=== PATIENT | male | born 1955 | race Caucasian/White ===

== ENCOUNTER 2024-11-27 20:58 | Outpatient (REF) | payer MEDICARE, SELFPAY ==
[2024-11-27 21:46] LABS: Anion Gap 6.6 mmol/L (3-11); BUN 25 mg/dL (7-18); CO2 29.4 mmol/L (21.0-32.0); CREATININE 1.3 mg/dL (0.70-1.30); Calcium 9.8 mg/dL (8.5-10.1); Chloride 106 mmol/L (98-107); Estimated GFR 59.84 (mL/min/1.73m2); Glucose 142 mg/dL (74-106); Potassium 4.2 mmol/L (3.5-5.1); Sodium 142 mmol/L (136-145)
[2024-11-27 22:09] LABS: Bacteria Rare HPF (Negative); C & S Indicated? C&S Done As Ordered; Casts Negative LPF (Negative); Crystals Negative HPF (Negative); Epithelial Cells Rare HPF (Negative); Mucus Negative (Negative); RBC 0-2 HPF (0-2); WBC 0-2 HPF (0-5)
== END 2024-11-27 20:59 | disposition home or self-care (01) ==
LOC: LBN 20:58
PROVIDERS: PCP Physician Assistant; Visit Provider Physician Assistant Medical
DX: N40.1 Benign prostatic hyperplasia with lower urinary tract symptoms (principal)
CPT/HCPCS: 80048; 81015; 87086

== ENCOUNTER 2024-12-09 14:22 | Emergency (ER) | payer MEDICARE, SELFPAY ==
[2024-12-09 14:58] VITALS: BP 176/117; PULSE 94; RESP 16; TEMP 36.9; O2SAT 98
[2024-12-09 15:04] LABS: Bilirubin Negative (Negative); Blood Negative (Negative); Clarity Clear (Clear); Glucose Negative (Negative); Ketones Negative (Negative); Leukocyte Esterase Small (Negative); Nitrite Negative (Negative); Specific Gravity 1.015 (1.005-1.025); Urobilinogen 0.2 mg/dL (Up to 0.2)
[2024-12-09 15:24] LABS: Bacteria Rare HPF (Negative); C & S Indicated? No; Casts Negative LPF (Negative); Crystals Negative HPF (Negative); Epithelial Cells Rare HPF (Negative); Mucus Negative (Negative); RBC 0-2 HPF (0-2)
--- NOTE | 2024-12-09 16:35 | ED.GENADUL_ITS ---
Discharge Plan Disposition Patient Disposition: Home Condition: Stable Discharge Details Clinical Impression: Renal colic Primary Care Provider: [place],Local ED Provider: Wayne Christopher Home Meds and New Rx's Prescriptions: New tamsulosin 0.4 mg capsule 0.4 mg PO DAILY 30 Days Qty: 30 0RF ketorolac 10 mg tablet 10 mg PO QID PRNQty: 19 0RF Rx Instructions: maximum total duration of 5 days from all oral, intranasal, or parenteral formulations Discharge Instructions Instructions: Kidney stones in adults, Ketorolac (Systemic), Tamsulosin Additional Instructions: You were seen in the emergency department for your likely right-sided renal colic, you have had increasing urinary frequency and dysuria and likely have passed a right kidney stone down to the bladder, your right genitourinary tract is dilated indicating recent passage of stone, you will likely pass the stone out of the urethra. I have sent your prescription for Flomax or tamsulosin to take once per day, as well as an prescription strength NSAID called ketorolac that you will use for the first 5 days and then transition to ibuprofen in its place. Take 1000 mg of Tylenol every 6 hours, once you run out of ketorolac use 400 mg of ibuprofen senior living between Tylenol dosings also 4 times per day. Please stay well-hydrated, drink 1/2 to 1 gallon of water per day, use other diuretics like coffee and cranberry juice. Use [id number] AZO for symptomatic relief of urethral discomfort. I have sent a referral to our care management team and attached their number below, they will set you up with primary care in hopes to gaining access to urology at some point in the near future. Referrals: Care Management [Provider Group] [facility] [Provider Group] [facility] [Provider Group] [facility] [Provider Group] [facility] [Provider Group] Discharge Data Discharge Date/Time-TO BE ENTERED AT DEPARTURE: 12/09/24 19:23 HPI General Date/Time Provider Initiated Documentation: 12/09/24 14:47 . HPI Narrative: 69 year-old male presents to ED today by POV/ambulating with a chief complaint of increasing urinary frequency, known BPH, dysuria with onset over the past several months. Quality described as weak stream, dysuria, urinary frequency, history of renal stones, no radiation to fever, nausea, vomiting, lack of urine output, severe abdominal pain, flank pain, cough, chest pain, shortness of breath. Severity is described as severe. Palliating factors include nothing specific attempted. Provoking factors include nothing specific. Events leading up to the incident/Associated Symptoms: Patient is staying with a friend in [place]- does not have PCP here. Patient not anticoagulated. Related Data Home Medications ?Medication ?Instructions ?Recorded ?Confirmed ketorolac 10 mg tablet 10 mg PO QID PRN #19 tabs 12/09/24 tamsulosin 0.4 mg capsule 0.4 mg PO DAILY 30 days #30 caps 12/09/24 Previous Rx's ?Medication ?Instructions ?Recorded ketorolac 10 mg tablet 10 mg PO QID PRN #19 tabs 12/09/24 tamsulosin 0.4 mg capsule 0.4 mg PO DAILY 30 days #30 caps 12/09/24 Allergies Allergy/AdvReac Type Severity Reaction Status Date / Time No Known Allergies Allergy Verified 12/09/24 15:06 General Stated Complaint: FlankPain CARMELO: 3 Review of Systems All systems reviewed & are unremarkable except as noted in HPI and below Exam Narrative Exam Narrative: GENERAL APPEARANCE: Well-nourished, non-toxic, awake and alert, atraumatic, no acute distress. SKIN: Warm, pink, dry, intact, without rashes/lesions/ulcerations. HEAD: Normocephalic, atraumatic, normal hair distribution for gender/age. EYES: Normal conjunctiva, no exudates on lids/lashes. ENT: Nares patent, no circumoral cyanosis, no facial swelling NECK: Supple, trachea midline, painless cervical ROM. LUNGS/CHEST: Non-labored respirations, normal A/P diameter, symmetrical expansion, no chest wall deformity HEART (CV/PV): No peripheral edema, no JVD. ABDOMEN: Soft, non-distended, no guarding, LLQ tenderness without rebound tenderness, no CVA tenderness to percussion bilaterally. MSK: Normal ROM, no swelling/deformity to bilateral UEs or LEs, moving all extremities without weakness, no cyanosis, spine midline without tenderness, normal curvature. NEURO: Mental Status AAOx4 - alert to person, place, time, events No facial droop, no forehead involvement. Motor: No focal weakness - strength 5/5 in bilateral UEs and LEs, proximal and distal, symmetric. Sensory: sensation intact to light touch globally. Gait normal: patient ambulated without ataxia into ED room. PSYCH: euthymic, cooperative, pleasant, appropriate speech Course Vital Signs Vital signs: Vital Signs Temperature 36.9 C 12/09/24 14:58 Pulse 94 H 12/09/24 14:58 Respiratory Rate 16 12/09/24 14:58 Blood Pressure 176/117 H 12/09/24 14:58 Pulse Oximetry 98 12/09/24 14:58 Temperature 36.9 C 12/09/24 14:58 Temperature Source Oral 12/09/24 14:58 Pulse 94 H 12/09/24 14:58 Respiratory Rate 16 12/09/24 14:58 Blood Pressure 176/117 H 12/09/24 14:58 Blood Pressure Position Sitting 12/09/24 14:58 Pulse Oximetry 98 12/09/24 14:58 Oxygen Delivery Method Room Air 12/09/24 14:58 Oxygen Flow Rate 0 12/09/24 14:58 Pain Level 7 12/09/24 14:58 Lab/Test Results Lab/Test Results: Laboratory Tests Range/Units 12/09/24 14:58 Urine Color (Yellow) Yellow Urine Clarity (Clear) Clear Urine pH (5-8) 7.0 Ur Specific [place] (1.005-1.025) 1.015 Urine Protein (Neg-Trace) mg/dL Negative Urine Ketones (Negative) mg/dL Negative Urine Blood (Negative) Negative Urine Nitrite (Negative) Negative Urine Bilirubin (Negative) Negative Urine Urobilinogen (Up to 0.2) mg/dL 0.2 Ur Leukocyte Esterase (Negative) Small H Urine RBC (0-2) HPF 0-2 Urine WBC (0-5) HPF 5-10 Ur Epithelial Cells (Negative) HPF Rare Urine Crystals (Negative) HPF Negative Urine Bacteria (Negative) HPF Rare Urine Casts (Negative) LPF Negative Urine Mucus (Negative) Negative Ur Culture Indicated? No Urine Glucose (Negative) mg/dL Negative Medical Decision Making This dictation utilizes [id number] dictation software and may contain unedited grammatical errors. 69 year-old male presents to ED today by POV/ambulating with a chief complaint of increasing urinary frequency, known BPH, dysuria with onset over the past several months-worse over the last 10 days with nocturia. Quality described as weak stream, dysuria, urinary frequency, history of renal stones, no radiation to fever, nausea, vomiting, lack of urine output, severe abdominal pain, flank pain, cough, chest pain, shortness of breath. Severity is described as severe. Palliating factors include nothing specific attempted. Provoking factors include nothing specific. Events leading up to the incident/Associated Symptoms: Patient is staying with a friend in [place]- does not have PCP here. Patients' medical history: Kidney stones, BPH. Family and social history: Noncontributory. Pertinent exam findings / vital signs include mild left lower quadrant tenderness, no CVA tenderness to percussion bilaterally, nontoxic vitals. Differential / pathologies of concern include renal colic, BPH with outflow obstruction, pyelonephritis, less likely bowel pathology, prostatitis. Diagnostic studies of: -CBC, CMP, UA, CT renal colic study. -CBC shows no leukocytosis -CMP without actionable abnormality -UA shows small leukoesterase with 5-10 WBCs, reflex to culture -CT renal colic study shows a 5 mm bladder stone on the right side with mild dilatation of the right renal collecting system likely recently passed stone through the ureter which correlates with the patient's onset over the past few days Interventions of: -Tamsulosin, ketorolac, Tylenol. ED Course/Assessment/Plan: 69-year-old male is visiting the area and does not have a PCP presents with dysuria and weak stream over months with known BPH, has a history of renal stones and notes worse dysuria nocturia and frequency over the last [address] shows a 5 mm bladder stone and dilated right renal collecting system likely passed 5 mm stone recently, I counseled him on Flomax and ketorolac which were provided by prescription and referred him to PCP to establish care so he could see a urologist. Findings not consistent with overt UTI, infected renal stone, obstructive uropathy. Disposition of renal colic. Patient verbalized understanding of the plan and return to ED criteria and engaged in shared decision making. Medical Records Medical records reviewed: Yes I reviewed the patient's medical records. Imaging Data Radiologic Study: Attestation: I personally reviewed and interpreted this imaging study as follows: Imaging: CT Scan Radiologist's impression: EXAM: CT RENAL COLIC WO CLINICAL HISTORY: hx stones, dysuria, frequency. TECHNIQUE: Imaging Protocol: Axial computed tomography images with coronal and sagittal reformatted images were created and reviewed. COMPARISON: No exams were available for comparison FINDINGS: ABDOMEN: Lung Bases: There is a calcified granuloma in the right lower lobe. Coronary artery calcifications are present. Liver: Normal density. No measurable mass. Gallbladder and biliary tract: No radiodense calculus or biliary ductal dilation. Pancreas: Normal density, no abnormal calcifications or inflammatory process. Spleen: Normal. Kidneys: Normal size, contour and axis.There is a 5 mm stone in the right aspect of the urinary bladder. There is very mild dilatation of the right ureter particularly distally. This may represent a recently passed stone. No masses seen. Adrenal glands: No mass is seen. Lymph nodes: Within normal limits. Abdominal Aorta: Abdominal portion non-dilated. Atherosclerotic calcification is present. PELVIS: Bladder:There is a 5 mm bladder stone present. The urinary bladder is distended. Bowel: No obstruction or bowel wall thickening. The stomach is incompletely distended limiting evaluation. There is no evidence of appendicitis. Peritoneal cavity: No ascites, collection or mesenteric inflammatory response. No free air. Reproductive organs: The prostate gland is markedly enlarged and impinges upon the base of the urinary bladder. Bones: Within normal limits. There is L5 spondylolysis and grade 1 spondylolisthesis of L5 on S1. Soft Tissues: Within normal limits. IMPRESSION: 1. 5 mm bladder stone on the right side. There is mild dilatation of the right renal collecting system. This may represent a recently passed stone. 2. Marked prostatomegaly. 3. No nephrolithiasis. Lab Data Lab results reviewed: Yes I reviewed the patient's lab results. Labs: 12/09/24 17:03 Urine - Clean Catch Urine Culture - Pending Laboratory Tests Range/Units 12/09/24 12/09/24 14:58 17:24 WBC (4.4-10.8) 10^3/uL 7.30 RBC (4.36-5.78) 10^6/uL 4.74 Hgb (13.5-17.5) g/dL 14.6 Hct (40.0-50.0) % 44.8 MCV (80-95) fL 95 MCH (27.0-33.0) pg 30.8 MCHC (32.0-36.0) % 32.6 RDW (11.8-14.1) % 13.7 Plt Count (130-400) 10^3/uL 253 MPV (8.0-11.0) fL 9.6 Immature Gran % % 0.1 Neutrophils % % 57.2 Lymphocytes % % 29.9 Monocytes % % 10.3 Eosinophils % % 1.8 Basophils % % 0.7 Nucleated RBC % (0.0-0.3) % 0.0 Absolute Neutrophils (1.2-6.7) 10^3/uL 4.18 Absolute Lymphocytes (1.2-3.4) 10^3/uL 2.18 Absolute Monocytes (0.1-0.8) 10^3/uL 0.75 Absolute Eosinophils (0.0-0.7) 10^3/uL 0.13 Absolute Basophils (0.0-0.2) 10^3/uL 0.05 Sodium (136-145) mmol/L 143 Potassium (3.5-5.1) mmol/L 4.7 Chloride (98-107) mmol/L 105 Carbon Dioxide (21.0-32.0) mmol/L 28.4 Anion Gap (3-11) mmol/L 9.6 BUN (7-18) mg/dL 18 Creatinine (0.70-1.30) mg/dL 1.2 Est GFR (CKD-EPI 2020) (mL/min/1.73m2) 65.87 Glucose (74-106) mg/dL 105 Calcium (8.5-10.1) mg/dL 9.7 Total Bilirubin (0.2-1.0) mg/dL 0.52 AST (15-37) U/L 26 ALT (16-63) U/L 36 Alkaline Phosphatase (46-116) U/L 98 Total Protein (6.4-8.2) g/dL 8.0 Albumin (3.4-5.0) g/dL 4.2 Urine Color (Yellow) Yellow Urine Clarity (Clear) Clear Urine pH (5-8) 7.0 Ur Specific [place] (1.005-1.025) 1.015 Urine Protein (Neg-Trace) mg/dL Negative Urine Ketones (Negative) mg/dL Negative Urine Blood (Negative) Negative Urine Nitrite (Negative) Negative Urine Bilirubin (Negative) Negative Urine Urobilinogen (Up to 0.2) mg/dL 0.2 Ur Leukocyte Esterase (Negative) Small H Urine RBC (0-2) HPF 0-2 Urine WBC (0-5) HPF 5-10 Ur Epithelial Cells (Negative) HPF Rare Urine Crystals (Negative) HPF Negative Urine Bacteria (Negative) HPF Rare Urine Casts (Negative) LPF Negative Urine Mucus (Negative) Negative Ur Culture Indicated? No Urine Glucose (Negative) mg/dL Negative Quality:SDOH Health Related Social Needs: No Data to Display PFSH All Active Problems (Updated 12/09/24 @ 19:06 by ARLET Soto) Renal colic (Acute) Social History Smoking/Tobacco Use Status: Never Smoking risk assessment performed?: Yes Alcohol Intake: never Drug use: Never Substance use type: does not use Housing: house Do you feel safe at home: Yes Do you feel safe in your relationship?: Yes Additional Social history: staying with a friend
[2024-12-09 16:59] VITALS: BP 144/106; PULSE 89; RESP 16; O2SAT 99
--- NOTE | 2024-12-09 17:00 | DI.CT_ITS ---
Exam(s) CT RENAL COLIC WO EXAM: CT RENAL COLIC WO CLINICAL HISTORY: hx stones, dysuria, frequency. TECHNIQUE: Imaging Protocol: Axial computed tomography images with coronal and sagittal reformatted images were created and reviewed. COMPARISON: No exams were available for comparison FINDINGS: ABDOMEN: Lung Bases: There is a calcified granuloma in the right lower lobe. Coronary artery calcifications a re present. Liver: Normal density. No measurable mass. Gallbladder and biliary tract: No radiodense calculus or biliary ductal dilation. Pancreas: Normal density, no abnormal calcifications or inflammatory process. Spleen: Normal. Kidneys: Normal size, contour and axis.There is a 5 mm stone in the right aspect of the urinary bladd er. There is very mild dilatation of the right ureter particularly distally. This may represent a r ecently passed stone. No masses seen. Adrenal glands: No mass is seen. Lymph nodes: Within normal limits. Abdominal Aorta: Abdominal portion non-dilated. Atherosclerotic calcification is present. PELVIS: Bladder:There is a 5 mm bladder stone present. The urinary bladder is distended. Bowel: No obstruction or bowel wall thickening. The stomach is incompletely distended limiting evalua tion. There is no evidence of appendicitis. Peritoneal cavity: No ascites, collection or mesenteric inflammatory response. No free air. Reproductive organs: The prostate gland is markedly enlarged and impinges upon the base of the urinar y bladder. Bones: Within normal limits. There is L5 spondylolysis and grade 1 spondylolisthesis of L5 on S1. Soft Tissues: Within normal limits. IMPRESSION: 1. 5 mm bladder stone on the right side. There is mild dilatation of the right renal collecting syst em. This may represent a recently passed stone. 2. Marked prostatomegaly. 3. No nephrolithiasis. RADIATION DOSE DELIVERED: 587mGy.cm Total DLP DATA REPOSITORY: All CT scans at this facility are submitted to the National Radiology Data Registry (NRDR) Dose Index Registry (DIR) with the [employer] ([employer]). RADIATION OPTIMIZATION: All CT scans at this facility use at least one of these dose optimization te chniques: automated exposure control; mA and/or kV adjustment per patient size (includes targeted exa ms where dose is matched to clinical indication); or iterative reconstruction.
[2024-12-09 17:34] LABS: Abs Immature Grans 0.01 10^3/uL (0.0-0.06); Absolute Basophil Count 0.05 10^3/uL (0.0-0.2); Absolute Eosinophil Count 0.13 10^3/uL (0.0-0.7); Absolute Lymphocyte Count 2.18 10^3/uL (1.2-3.4); Absolute Monocyte Count 0.75 10^3/uL (0.1-0.8); Absolute Neutrophil Count 4.18 10^3/uL (1.2-6.7); Basophils % 0.7 %; Eosinophils % 1.8 %; HCT 44.8 % (40.0-50.0); HGB 14.6 g/dL (13.5-17.5); Immature Grans % 0.1 %; Lymphocytes % 29.9 %; MCH 30.8 pg (27.0-33.0); MCHC 32.6 % (32.0-36.0); MCV 95 fL (80-95); MPV 9.6 fL (8.0-11.0); Monocytes % 10.3 %; Neutrophils % 57.2 %; Platelet Count 253 10^3/uL (130-400); RBC 4.74 10^6/uL (4.36-5.78); RDW 13.7 % (11.8-14.1); RDW-SD 47.9 fL
[2024-12-09 17:50] LABS: ALT 36 U/L (16-63); AST 26 U/L (15-37); Albumin 4.2 g/dL (3.4-5.0); Alkaline Phosphatase 98 U/L (46-116); Anion Gap 9.6 mmol/L (3-11); BUN 18 mg/dL (7-18); Bilirubin, Total 0.52 mg/dL (0.2-1.0); CO2 28.4 mmol/L (21.0-32.0); CREATININE 1.2 mg/dL (0.70-1.30); Calcium 9.7 mg/dL (8.5-10.1); Chloride 105 mmol/L (98-107); Estimated GFR 65.87 (mL/min/1.73m2); Glucose 105 mg/dL (74-106); Potassium 4.7 mmol/L (3.5-5.1); Sodium 143 mmol/L (136-145)
[2024-12-09 18:04] VITALS: BP 146/85; PULSE 78; RESP 16; O2SAT 98
[2024-12-09] MEDS: Tamsulosin 0.4 MG CAPCR PO (19:20)
[2024-12-09] MEDS: Ketorolac 10 MG TAB PO (19:20)
[2024-12-09] MEDS: Acetaminophen 500 MG TAB 1000 MG PO (19:20)
== END 2024-12-09 19:23 | disposition home or self-care (01) ==
PROVIDERS: Emergency Medicine Emergency Medical Services; Emergency Provider Physician Assistant
DX: N40.1 Benign prostatic hyperplasia with lower urinary tract symptoms (principal); R35.0 Frequency of micturition; N23 Unspecified renal colic
CPT/HCPCS: 80053; 99284; 74176; 81003; 81015; 85025; 87086; 99283